=== PATIENT | female | born 1935 | race Caucasian/White ===

== ENCOUNTER 2022-12-09 16:01 | Emergency (ER) | payer MEDICARE, BC ==
[~2022-12-09] VITALS: Ht 162.6 cm; Wt 84.4 kg
[2022-12-09 18:27] VITALS: BP 124/74; TEMP 98.1; O2SAT 99
== END 2022-12-09 18:27 | disposition home or self-care (01) ==
LOC: ER 16:19
DX: S61.012A Laceration without foreign body of left thumb without damage to nail, initial encounter (principal); S00.03XA Contusion of scalp, initial encounter; I10 Essential (primary) hypertension; Z88.0 Allergy status to penicillin; Z88.8 Allergy status to other drugs, medicaments and biological substances; W01.0XXA Fall on same level from slipping, tripping and stumbling without subsequent striking against object, initial encounter; Y93.89 Activity, other specified; Y92.89 Other specified places as the place of occurrence of the external cause; Y99.8 Other external cause status
CPT/HCPCS: 70450-TC; 72125-TC